=== PATIENT | male | born 2000 | race Hispanic/Latino ===

== ENCOUNTER 2025-04-12 22:22 | Emergency (ER) | payer SELFPAY ==
[2025-04-12 23:00] LABS: #Basophils 0.1 thou/uL (0.0-0.2); #Eosinophils 0.1 thou/uL (0.0-0.7); #Lymphocytes 1.6 thou/uL (1.20-3.40); #Monocytes 1.4 thou/uL (0.11-0.59); #Neutrophils 11.7 thou/uL (1.40-6.50); %Basophils 0.4 % (0.0-1.0); %Eosinophils 0.4 % (0.0-10.0); %Lymphocytes 10.8 % (21.0-51.0); %Monocytes 9.4 % (0.0-10.0); %Neutrophils 79.0 % (42.0-75.0); Hematocrit 54.1 % (42.0-52.0); Hemoglobin 18.5 g/dL (14.0-18.0); Mean Corpuscular Hemoglobin 29.4 pg (27.0-31.0); Mean Corpuscular Volume 85.7 fl (78.0-98.0); Platelet Count 325 10x3/uL (130-400); Red Blood Cell (RBC) Count 6.31 mill/uL (4.70-6.10); White Blood Cell (WBC) Count 14.8 10x3/uL (4.8-10.8)
[2025-04-12 23:17] LABS: ALT (SGPT) 9 U/L (Less than 45); AST (SGOT) 12 U/L (11-34); Albumin 3.7 g/dL (3.1-4.5); Alkaline Phosphatase 79 U/L (40-110); Anion Gap 21 mmol/L (10-20); BUN (Urea Nitrogen) 7 mg/dL (8.9-20.6); Bilirubin, Total 1.2 mg/dL (0.3-1.2); Calc. Creatinine Clearance 0 mL/min (70-130); Calcium 10.6 mg/dL (7.8-10.44); Carbon Dioxide 27 mmol/L (22-29); Chloride 96 mmol/L (98-107); Globulin 4.9 g/dL (2.4-3.5); Glucose 102 mg/dL (70-105); Potassium 3.6 mmol/L (3.5-5.1); Sodium 140 mmol/L (136-145)
[2025-04-13] MEDS ORDERED: Lidocaine 1% PF 5 ML VIAL ONE (00:50)
[2025-04-13] MEDS ORDERED: Lidocaine 1%/Epinephrine 1:100K 10 ML VIAL ONE (00:58)
[2025-04-13] MEDS ORDERED: HYDROcodone/Acetaminophen 10/325 mg Tablet ONE (01:15)
[2025-04-13] MEDS ORDERED: Ketorolac Tromethamine 30 MG (1 mL) VIAL ONE (01:15)
[2025-04-13] MEDS ORDERED: Iopamidol 370 76% 100 ML VIAL ONE (09:32)
== END 2025-04-13 13:03 | disposition short-term general hospital (02) ==
LOC: BURERS 22:22
DX: K13.0 Diseases of lips (principal)
CPT/HCPCS: 10160; 70486; 70488; 80053; 83605; 85025; 87040; 87070; 87077; 87149; 87186; 87205; 96365; 96367; 96368; 96375; 96376; J1885; J2543; J2919; J3490; Q9967